=== PATIENT | male | born 1995 ===

== ENCOUNTER 2018-09-12 15:05 | Emergency (ER) | payer BC ==
[2018-09-12 15:16] VITALS: BP 121/78; PULSE 64; RESP 16; TEMP 98.7; O2SAT 100
--- NOTE | 2018-09-12 19:29 | C.PDOC ---
History Of Present Illness 22 y/o male presents to ER for 4th rabies vaccination. Patient states that he was bit by a stray dog while he was in [place]. Patient received his 1st rabies vaccination in [place] and he has a prescription from an doctor. Denies having fever and chills. Time Seen by Provider: 09/12/18 15:17 Chief Complaint (Nursing): Rabies Vaccine Series History Per: Patient History/Exam Limitations: no limitations Past Medical History Reviewed: Historical Data, Nursing Documentation, Vital Signs Vital Signs: Last Vital Signs Temp 98.7 F 09/12/18 15:13 Pulse 64 09/12/18 15:13 Resp 16 09/12/18 15:13 BP 121/78 09/12/18 15:13 Pulse Ox 100 09/12/18 15:13 - Medical History PMH: No Chronic Diseases Surgical History: No Surg Hx Family History: States: No Known Family Hx - Social History Hx Alcohol Use: No Hx Substance Use: No - Immunization History Hx Tetanus Toxoid Vaccination: Yes (03/2018) Review Of Systems Except As Marked, All Systems Reviewed And Found Negative. Constitutional: Negative for: Fever, Chills Physical Exam - Physical Exam Appears: Non-toxic, No Acute Distress Skin: Normal Color, Warm, Dry Head: Atraumatic, Normacephalic Eye(s): bilateral: Normal Inspection Nose: Normal Oral Mucosa: Moist Neck: Supple Chest: Symmetrical Neurological/Psych: Oriented x3, Normal Speech ED Course And Treatment O2 Sat by Pulse Oximetry: 100 (RA) Pulse Ox Interpretation: Normal Medical Decision Making Medical Decision Making: Patient has been administered rabies vaccination. Patient has been discharged and instructed to follow up with his doctor. Disposition - Disposition Referrals: [facility] Oscar Das, [Non-Staff] - Disposition: HOME/ ROUTINE Disposition Time: 15:30 Condition: GOOD Additional Instructions: KEVIN KUO, thank you for letting us take care of you today. The emergency medical care you received today was directed at your acute symptoms. If you were prescribed any medication, please fill it and take as directed. It may take several days for your symptoms to resolve. Return to the Emergency Department if your symptoms worsen, do not improve, or if you have any other problems. Please contact your doctor or call one of the physicians/clinics you have been referred to that are listed on the Patient Visit Information form that is included in your discharge packet. Bring any paperwork you were given at discharge with you along with any medications you are taking to your follow up visit. Our treatment cannot replace ongoing medical care by a primary care provider outside of the emergency department. Thank you for allowing the [facility] team to be part of your care today. Follow up with your doctor if you have any concerns. Instructions: Rabies Vaccine Forms: [facility] (Macedonian) - Clinical Impression Clinical Impression: Rabies vaccination - Scribe Statement The provider has reviewed the documentation as recorded by the Jonathan Baum Provider Attestation: All medical record entries made by the Sairaibe were at my direction and personally dictated by me. I have reviewed the chart and agree that the record accurately reflects my personal performance of the history, physical exam, medical decision making, and the department course for this patient. I have also personally directed, reviewed, and agree with the discharge instructions and disposition.
== END 2018-09-12 16:01 | disposition home or self-care (01) ==
LOC: C.ER 15:05
DX: Z23 Encounter for immunization (principal)